=== PATIENT | female | born 1980 | race Two or more races ===

== ENCOUNTER 2019-02-14 16:06 | Emergency (ER) | payer OTHER ==
[~2019-02-14] VITALS: Ht 160 cm; Wt 56.7 kg
[2019-02-14 16:30] VITALS: BP 107/71
[2019-02-14] MEDS ORDERED: ZyPREXA Zydis 10mg tab ORAL ONE (16:30)
--- NOTE | 2019-02-14 16:30 | NUR ---
ED Nurse Note: pt was brought in to ER by [employer] as 5150 hold. per CHELSEYD Daryl #[id number] pt was pulled over while driving and she would not have cooperated which was coming out of her car and when she was pulled out of her car forcefully, she swallowed her necklace in front of police. she is refusing to open her mouth or answering questions. skin clean and intact.
--- NOTE | 2019-02-14 16:30 | NUR ---
ED Nurse Note: Patient refused Zyprexa and ERMD informed.
--- NOTE | 2019-02-14 17:00 | NUR ---
ED Nurse Note: pt started communicating with nurse as writing. pt wrote "I want to go home." pt was explained why she cannot go home at this moment. she opened her mouth and showed gold color necklace to nurse and wrote "I didn't swallow." Nurse tried to convince pt to take that out for her safety and she wrote "I will swallow if you try." Nurse will convince pt again later. Urine and blood were obtained and sent to lab. pt is cooperating better and not being combative anymore.
--- NOTE | 2019-02-14 17:05 | Emergency Room Report ---
History of Present Illness General Chief Complaint: Behavioral Complaint Source: Patient Present Illness HPI This patient is brought in by [employer]. The patient was driving erratically and was stopped by the police. When they approached the car the patient would not speak to them and would not respond. She kept her foot on the brake pedal and then shortly thereafter swallowed a charm from her necklace. She has been nonverbal since their interaction with her. She does have the demeanor of being upset and will follow some instructions. She refuses to shake her head yes or no when asked questions. I did obtain her cell phone and called back of the most recent number and got a hold of a counselor at a rehabilitation program. However, the counselor was unable to provide any information to me. The patient was alert but refusing answer any questions either verbally or with head shakes. Allergies: Coded Allergies: UNABLE TO ASSESS (Unverified , 02/14/19) refusing to answer questions Patient History Past Medical History: none, see triage record, psych hx Last Menstrual Period: unk Now: No Reviewed Nursing Documentation: PMH: Agreed; PSxH: Agreed Nursing Documentation-PMH Past Medical History: Deferred Review of Systems All Other Systems: limited Physical Exam Vital Signs Date Time Temp Pulse Resp B/P (MAP) Pulse Ox O2 Delivery O2 Flow Rate FiO2 02/14/19 16:00 97.7 89 18 104/68 98 Room Air Sp02 EP Interpretation: reviewed, normal General Appearance: no apparent distress, alert, GCS 15, non-toxic Head: normocephalic, atraumatic Eyes: bilateral eye normal inspection, bilateral eye PERRL ENT: hearing grossly normal, normal pharynx, no angioedema, normal voice Neck: full range of motion, supple/symm/no masses Respiratory: chest non-tender, lungs clear, normal breath sounds, no respiratory distress, no retraction, no accessory muscle use, speaking full sentences Cardiovascular #1: regular rate, rhythm, no edema Gastrointestinal: normal bowel sounds, non tender, soft, non-distended, no guarding, no rebound Rectal: deferred Musculoskeletal: back normal, gait/station normal, normal range of motion, non- tender Neurologic: alert, oriented x3, responsive, motor strength/tone normal, sensory intact, speech normal Psychiatric: judgement/insight normal, memory normal, mood/affect normal, no suicidal/homicidal ideation Skin: normal color, no rash, warm/dry, well hydrated Medical Decision Making Diagnostic Impression: Primary Impression: Psychosis ER Course This patient presents with psychotic behavior. The patient was continued to be nonverbal during her ED course. However, she did communicate via writing on a pad of paper. She did actually swallow the necklace that the police thought she had. It was located under her tongue and she refused to take the necklace out of her mouth. I suspect this patient has had a psychotic break. The patient refused to take oral Zyprexa. She was noncombative and compliant during her ED course so I did not give this patient IM Haldol or forced this patient to take any medications. The patient's urine drug screen was positive for marijuana but otherwise her tox screen was negative. Other laboratory findings are unremarkable. Feel that this patient's behavior is psychiatric in etiology. The patient is on a 5150 hold for danger to herself. I do not feel this patient is safe for discharge home. The patient is medically cleared for inpatient psychiatric care. Laboratory Tests Test 02/14/19 17:30 White Blood Count 4.5 K/UL (4.8-10.8) L Red Blood Count 4.40 M/UL (4.20-5.40) Hemoglobin 13.5 G/DL (12.0-16.0) Hematocrit 40.1 % (37.0-47.0) Mean Corpuscular Volume 91 FL (80-99) Mean Corpuscular Hemoglobin 30.7 PG (27.0-31.0) Mean Corpuscular Hemoglobin Concent 33.6 G/DL (32.0-36.0) Red Cell Distribution Width 11.8 % (11.6-14.8) Platelet Count 177 K/UL (150-450) Mean Platelet Volume 6.2 FL (6.5-10.1) L Neutrophils (%) (Auto) 70.7 % (45.0-75.0) Lymphocytes (%) (Auto) 23.1 % (20.0-45.0) Monocytes (%) (Auto) 5.4 % (1.0-10.0) Eosinophils (%) (Auto) 0.3 % (0.0-3.0) Basophils (%) (Auto) 0.5 % (0.0-2.0) Urine Color Pale yellow Urine Appearance Clear Urine pH 8 (4.5-8.0) Urine Specific [place] 1.010 (1.005-1.035) Urine Protein Negative (NEGATIVE) Urine Glucose (UA) Negative (NEGATIVE) Urine Ketones Negative (NEGATIVE) Urine Blood 2+ (NEGATIVE) H Urine Nitrite Negative (NEGATIVE) Urine Bilirubin Negative (NEGATIVE) Urine Urobilinogen Normal MG/DL (0.0-1.0) Urine Leukocyte Esterase Negative (NEGATIVE) Urine RBC 0-2 /HPF (0 - 2) Urine WBC 0 /HPF (0 - 2) Urine Squamous Epithelial Cells Occasional /LPF Urine Amorphous Sediment Few /LPF (NONE) H Urine Bacteria None /HPF (NONE) Urine HCG, Qualitative Negative (NEGATIVE) Sodium Level 141 MMOL/L (136-145) Potassium Level 3.5 MMOL/L (3.5-5.1) Chloride Level 106 MMOL/L (98-107) Carbon Dioxide Level 25 MMOL/L (21-32) Anion Gap 10 mmol/L (5-15) Blood Urea Nitrogen 9 mg/dL (7-18) Creatinine 0.6 MG/DL (0.55-1.30) Estimate Glomerular Filtration Rate > 60 mL/min (>60) Glucose Level 104 MG/DL (74-106) Calcium Level 8.7 MG/DL (8.5-10.1) Total Bilirubin 0.4 MG/DL (0.2-1.0) Aspartate Amino Transferase (AST) 10 U/L (15-37) L Alanine Aminotransferase (ALT) 10 U/L (12-78) L Alkaline Phosphatase 60 U/L (46-116) Total Protein 7.6 G/DL (6.4-8.2) Albumin 4.2 G/DL (3.4-5.0) Globulin 3.4 g/dL Albumin/Globulin Ratio 1.2 (1.0-2.7) Thyroid Stimulating Hormone (TSH) 0.771 uiU/mL (0.358-3.740) Salicylates Level 1.9 ug/mL (2.8-20) L Urine Opiates Screen Negative (NEGATIVE) Acetaminophen Level < 2 MCG/ML (10-30) L Urine Barbiturates Screen Negative (NEGATIVE) Phencyclidine (PCP) Screen Negative (NEGATIVE) Urine Amphetamines Screen Negative (NEGATIVE) Urine Benzodiazepines Screen Negative (NEGATIVE) Urine Cocaine Screen Negative (NEGATIVE) Urine Marijuana (THC) Screen Positive (NEGATIVE) H Serum Alcohol < 3 mg/dL Last Vital Signs Date Time Temp Pulse Resp B/P (MAP) Pulse Ox O2 Delivery O2 Flow Rate FiO2 02/14/19 16:00 97.7 89 18 104/68 98 Room Air Disposition: XFER TO PSYCH HOSP/UNIT Condition: Serious Janie Mosqueda DO Feb 14, 2019 17:05
[2019-02-14 17:37] LABS: APPEARANCE,URINE CLEAR; BASOPHILS % (AUTO) 0.5 % (0.0-2.0); BILIRUBIN, URINE NEGATIVE (NEGATIVE); COLOR,URINE PALE YELLOW; EOSINOPHILS % (AUTO) 0.3 % (0.0-3.0); GLUCOSE, URINE (UA) NEGATIVE (NEGATIVE); HEMATOCRIT 40.1 % (37.0-47.0); HEMOGLOBIN 13.5 G/DL (12.0-16.0); KETONES,URINE NEGATIVE (NEGATIVE); LEUKOCYTE ESTERASE ,URINE NEGATIVE (NEGATIVE); LYMPHOCYTES % (AUTO) 23.1 % (20.0-45.0); MEAN CORPUSCULAR VOLUME 91 FL (80-99); MONOCYTES % (AUTO) 5.4 % (1.0-10.0); NEUTROPHILS % (AUTO) 70.7 % (45.0-75.0); NITRITE,URINE NEGATIVE (NEGATIVE); PH,URINE 8 (4.5-8.0); PLATELET COUNT 177 K/UL (150-450); PROTEIN,URINE NEGATIVE (NEGATIVE); RED CELL DISTRIBUTION WIDTH 11.8 % (11.6-14.8); UROBILINOGEN,URINE NORMAL MG/DL (0.0-1.0); WHITE BLOOD COUNT 4.5 K/UL (4.8-10.8)
[2019-02-14 17:48] LABS: ANION GAP 10 mmol/L (5-15); BLOOD UREA NITROGEN 9 mg/dL (7-18); CALCIUM 8.7 MG/DL (8.5-10.1); CARBON DIOXIDE 25 MMOL/L (21-32); CHLORIDE 106 MMOL/L (98-107); CREATININE 0.6 MG/DL (0.55-1.30); POTASSIUM 3.5 MMOL/L (3.5-5.1); SODIUM 141 MMOL/L (136-145)
--- NOTE | 2019-02-14 17:50 | NUR ---
ED Nurse Note: pt agreed with removing her necklace from her mouth. it was one gold color charm and one gold color ring. they were put in the bag and sealed. pt calm and cooperative but still not verbally answering questions.
[2019-02-14 18:03] LABS: ALANINE AMINOTRANSFERASE 10 U/L (12-78); ALBUMIN 4.2 G/DL (3.4-5.0); ALBUMIN/GLOBULIN RATIO 1.2 (1.0-2.7); ALKALINE PHOSPHATASE 60 U/L (46-116); ASPARTATE AMINO TRANSFERASE 10 U/L (15-37); BILIRUBIN,TOTAL 0.4 MG/DL (0.2-1.0)
[2019-02-14 18:30] VITALS: BP 110/68
--- NOTE | 2019-02-14 18:41 | NUR ---
ED Nurse Note: luzmaria placed in locker #2.
--- NOTE | 2019-02-14 19:10 | NUR ---
HAND-OFF: Report given to TORRI March.
--- NOTE | 2019-02-14 19:18 | NUR ---
ED Nurse Note: received report from RN diego, pt calm and cooperative, resting at this time, denies SI/HI/VH/AH, VSS, airway intact, resp even and unlabored on RA, will cont monitor. Sitter at the bedside.
[2019-02-14 19:30] VITALS: BP 108/50
[2019-02-14 23:30] VITALS: BP 100/67
--- NOTE | 2019-02-14 23:30 | NUR ---
ED Nurse Note: pt resting at this time, sitter at the bedside, vss, resp even and unlabored on RA, marline SI/HI/VH/AH, will cont monitor. pt calm and cooperative.
--- NOTE | 2019-02-15 02:10 | NUR ---
ED Nurse Note: pt sleeping at this time, sitter at the bedside, will cont monitor.
[2019-02-15 02:30] VITALS: BP 104/54
--- NOTE | 2019-02-15 02:51 | NUR ---
ED Nurse Note: ordered breakfast tray per ERMD order.
[2019-02-15 06:30] VITALS: BP 110/51
--- NOTE | 2019-02-15 07:31 | NUR ---
ED Nurse Note: VEGAN DIET ORDERED PER PT REQ.
--- NOTE | 2019-02-15 07:31 | NUR ---
HAND-OFF: Report given to RN PRECIOUS and endorsed care, pt resp even and unlabored on RA, denies SI/HI/VH/AH, calm and cooperative, sitter at the bedside, iv intact.
--- NOTE | 2019-02-15 07:41 | NUR ---
ED Nurse Note: Patient appears relaxed. Patient awake, alert, oriented x 4. Regular, unlabored breathing noted. Reports no SI/HI at this time. Patient states she took some Eddible last week. Denies hearing voices or seeing things that weren't there. Sitter at bedside. Provided hygiene products.
--- NOTE | 2019-02-15 09:07 | NUR ---
ED Nurse Note: Patient consumed 90% of breakfast.
[2019-02-15] MEDS ORDERED: NKM (10:14)
--- NOTE | 2019-02-15 10:17 | NUR ---
ED Nurse Note: Patient resting in bed, watching video on the phone.
--- NOTE | 2019-02-15 10:43 | NUR ---
ED Nurse Note: Dr. Marie at bedside.
[2019-02-15 11:11] VITALS: BP 97/66
--- NOTE | 2019-02-15 11:12 | NUR ---
ED Nurse Note: Patient cleared to be d/c per LAURIE and Dr. Marie. Dr. Marie lifted 5150 hold/ D/C instruction and prescription provided. Patient education done via discussion and handout. Patient verbalized understanding and agrees with plan. Offered resources. Patient ambulated out steady gait with her belongings. Wristband removed.
--- NOTE | 2019-02-15 13:01 | Diagnostic Imaging Report ---
Indication: Abdominal pain Comparison: None Single view of the abdomen obtained Findings: Bowel gas pattern is nonspecific. No mass, ectopic calcifications, or abnormal gas collections are identified. The bones are unremarkable. No radiopaque foreign body is identified. Impression: No acute findings
--- NOTE | 2019-02-16 08:00 | Consultation ---
DATE OF CONSULTATION: 02/15/2019 HISTORY OF PRESENT ILLNESS: The patient is a 38-year-old female with a history of PTSD and depression who was admitted to the hospital on 5150 for psychiatric evaluation. The patient was apparently driving on [address] erratically. She was stopped by the police, and the patient stated she panicked, she thought she is going to care home, and that is why she put her necklace charm in her mouth and attempted to swallow the charm to avoid going to care home. The patient was brought into the emergency room as a result of suicide attempt. The patient refused to speak to the ER doctor the night before. Today, during the evaluation, she was calm. She was very coherent and was able to explain the reason for her behavior today. Before she stated that she is currently living in a nursing home and was going to an interview for permanent housing. She also recently got a new job. The patient is not suicidal or homicidal. No depression or psychotic symptoms. PAST PSYCHIATRIC HISTORY: Panic disorder and PTSD. PAST MEDICAL HISTORY: None. ALLERGIES: None. SUBSTANCE ABUSE HISTORY: She stated that she has no history of illicit drug use or alcohol, positive for cannabis. MENTAL STATUS EXAMINATION: The patient is alert and oriented x3. Mood is neutral. Affect is constricted. Congruent with mood. Thought process is concrete. Thought content, no suicidal or homicidal ideations. ASSESSMENT: Justin I Panic disorder, PTSD. Justin II Deferred. Justin III None. Justin IV Low. Justin V 50. PLAN: The patient's 5150 will be discontinued. The patient is not an imminent danger to self or others. She will be discharged with followup plan with a psychiatrist. Guille Marie M.D. DR: DANA JOB#: [id number] CC:
== END 2019-02-15 11:13 | disposition home or self-care (01) ==
LOC: EDBD 16:06 → EMR 16:30
DX: F29 Unspecified psychosis not due to a substance or known physiological condition (principal); F41.0 Panic disorder [episodic paroxysmal anxiety]; F43.10 Post-traumatic stress disorder, unspecified; R10.9 Unspecified abdominal pain
CPT/HCPCS: 36415; 74018; 80053; 80307; 80329; 81003; 81025; 84443; 85025; 96360; 99284